=== PATIENT | male | born 1970 | race Caucasian/White ===

== ENCOUNTER → 2017-01-16 | Outpatient (CLI) | payer BC ==
--- NOTE | 2017-01-16 19:16 | Diagnostic Imaging Report ---
INDICATION: Wrist pain. COMPARISON: None available. TECHNIQUE: Three views of the left wrist. FINDINGS: No acute fracture or traumatic malalignment. Joint spaces are well maintained. No chondrocalcinosis of the TFCC. IMPRESSION: 1. No acute fracture. Dictated by: Dictated on workstation # [id number]
== END ==
LOC: RAD 17:11
PROVIDERS: ATTEND Family Medicine
DX: M25.532 Pain in left wrist (principal)
CPT/HCPCS: 73110